=== PATIENT | male | born 1995 | race Two or more races ===

== ENCOUNTER → 2025-03-24 | Outpatient (CLI) | payer OTHER ==
[2025-03-24 13:15] LABS: Hepatitis B Surface Antibody Positive (Negative)
[2025-03-24 13:27] LABS: Hepatitis B Surface Antigen Negative (Negative)
== END | disposition home or self-care (01) ==
LOC: LAB 12:20
PROVIDERS: ATTEND Family Medicine
DX: Z01.89 Encounter for other specified special examinations (principal); Z77.21 Contact with and (suspected) exposure to potentially hazardous body fluids; Z20.6 Contact with and (suspected) exposure to human immunodeficiency virus [HIV]
CPT/HCPCS: 36415; 86703; 86706; 86803; 87340

== ENCOUNTER 2025-06-21 12:35 | Outpatient (CLI) | payer OTHER ==
[2025-06-21 13:41] LABS: Hepatitis B Surface Antigen Negative (Negative)
== END 2025-06-21 17:00 | disposition home or self-care (01) ==
LOC: LAB 12:35
PROVIDERS: ATTEND Family Medicine
DX: S61.233A Puncture wound without foreign body of left middle finger without damage to nail, initial encounter (principal); Z77.011 Contact with and (suspected) exposure to lead; Z77.21 Contact with and (suspected) exposure to potentially hazardous body fluids; X58.XXXA Exposure to other specified factors, initial encounter; Y93.89 Activity, other specified; Y92.89 Other specified places as the place of occurrence of the external cause; Y99.8 Other external cause status
CPT/HCPCS: 36415; 86703; 86706; 86803; 87340